=== PATIENT | female | born 1985 | race Caucasian/White ===

== ENCOUNTER 2017-05-18 00:37 | Emergency (ER) | payer MEDICAID ==
[2016-06-03 12:56] VITALS: BMI 32.2
[~2017-05-18 00:37] MED LIST: IBUPROFEN600 MG PO; MOTRIN800 MG PO; PERCOCET 10/3251 TA1 PO; PERCOCET 5-3251 TAB PO; PRENATAL COMPLE1 TAB PO; TYLENOL W/CODEI1 TAB PO
== END 2017-05-18 01:30 | disposition home or self-care (01) ==
LOC: D.ER 00:37
DX: S60.212A Contusion of left wrist, initial encounter (principal); X58.XXXA Exposure to other specified factors, initial encounter; Y93.89 Activity, other specified; Y92.029 Unspecified place in mobile home as the place of occurrence of the external cause

== ENCOUNTER 2017-06-15 13:07 | Emergency (ER) | payer MEDICAID ==
[2016-06-03 12:56] VITALS: BMI 32.2
== END 2017-06-15 16:05 | disposition home or self-care (01) ==
LOC: D.ER 13:07
DX: L50.9 Urticaria, unspecified (principal); T37.0X5A Adverse effect of sulfonamides, initial encounter; Y92.029 Unspecified place in mobile home as the place of occurrence of the external cause

== ENCOUNTER 2018-06-08 23:35 | Emergency (ER) | payer MEDICAID ==
[~2018-06-08] VITALS: Ht 170.2 cm; Wt 65.9 kg
[2018-06-08 23:43] VITALS: Ht 170.2 cm; Wt 65.9 kg
[2018-06-09 00:02] VITALS: BP 117/72
== END 2018-06-09 00:03 | disposition home or self-care (01) ==
LOC: D.ER 23:35
DX: T16.1XXA Foreign body in right ear, initial encounter (principal); X58.XXXA Exposure to other specified factors, initial encounter; Y93.89 Activity, other specified; Y92.019 Unspecified place in single-family (private) house as the place of occurrence of the external cause; F17.200 Nicotine dependence, unspecified, uncomplicated

== ENCOUNTER 2018-07-24 17:59 | Emergency (ER) | payer MEDICAID ==
[~2018-07-24] VITALS: Ht 170.2 cm; Wt 63.6 kg
[2018-07-24 18:05] VITALS: Ht 170.2 cm; Wt 63.6 kg
[2018-07-24 18:51] LABS: BASOPHILS 0.4 % (0-2); EOSINOPHILS 3.9 % (0-7); HEMATOCRIT 47.2 % (36.0-48.0); HEMOGLOBIN 15.8 g/dL (12-16); IMMATURE GRANULOCYTES 0.2 % (0-5); LYMPHOCYTES 20.1 % (15-50); MCH 30.2 pg (26.0-34.0); MCHC 33.5 g/dL (31.0-37.0); MCV 90.2 fL (80.0-100.0); MEAN PLATELET VOLUME 9.8 fL (7.4-10.4); MONOCYTES 10.1 % (2-11); NEUTROPHILS 65.3 % (40-80); RBC 5.23 10x6/uL (4.00-5.40); RDW 12.8 % (11.5-14.5); WBC 4.8 10x3/uL (4.8-10.8)
[2018-07-24 18:54] LABS: PLATELET COUNT 250 10x3/uL (130-400)
[2018-07-24 19:03] LABS: ALBUMIN 3.8 g/dL (3.4-5.0); ALKALINE PHOSPHATASE 58 U/L (46-116); ALT (SGPT) 19 U/L (10-68); BILIRUBIN - TOTAL 0.39 mg/dL (0.2-1.3); CALC OSMOLALITY 274 mosm/kg (275-300); CALCIUM 9.2 mg/dL (8.5-10.1); CARBON DIOXIDE 26.8 mmol/L (21.0-32.0); CHLORIDE - SERUM 100 mmol/L (98-107); CREATININE - SERUM 0.9 mg/dL (0.6-1.3); GLUCOSE 109 mg/dL (74-106); POTASSIUM - SERUM 3.3 mmol/L (3.5-5.1); PROTEIN - SERUM 7.8 g/dL (6.4-8.2); SODIUM 137 mmol/L (136-145); UREA NITROGEN 13 mg/dL (7-18); eGFR NON AFRICAN AMERICAN 78 mL/min (90-120)
[2018-07-24 19:05] LABS: APPEARANCE CLOUDY (CLEAR); BILIRUBIN NEGATIVE (NEGATIVE); COLOR YELLOW (YELLOW); GLUCOSE NEGATIVE (NEGATIVE); KETONE NEGATIVE (NEGATIVE); NITRITE NEGATIVE (NEGATIVE); PROTEIN 2+ mg/dL (NEGATIVE); SPECIFIC GRAVITY 1.025 (1.005-1.020); UROBILINOGEN NORMAL (NORMAL)
[2018-07-24 19:06] LABS: BACTERIA FEW /hpf (NONE SEEN); EPITHELIAL CELLS 25-50 /hpf (0-5); RED CELLS - URINE NONE SEEN /hpf (0-5); WHITE CELLS - URINE >50 /hpf (0-5)
[2018-07-24] MEDS ORDERED: DIFLUCAN150 MG PO (21:50)
[2018-07-24] MEDS ORDERED: CIPRO250 MG PO (21:50)
[2018-07-24 22:45] VITALS: BP 118/77
== END 2018-07-24 22:45 | disposition home or self-care (01) ==
LOC: D.ER 17:59
PROVIDERS: Family Medicine
DX: N39.0 Urinary tract infection, site not specified (principal); M54.5 Low back pain; R42 Dizziness and giddiness; F17.200 Nicotine dependence, unspecified, uncomplicated

== ENCOUNTER 2019-03-08 13:17 | Emergency (ER) | payer MEDICAID ==
[~2019-03-08] VITALS: Ht 170.2 cm; Wt 68.2 kg
[~2019-03-08 13:17] MED LIST changes: +CIPRO250 MG PO; +DIFLUCAN150 MG PO
[2019-03-08 13:26] VITALS: Ht 170.2 cm; Wt 68.2 kg
--- NOTE | 2019-03-08 14:47 | NUR ---
PT WAS AGGRESSIVE WITH ER STAFF AND INITIAL REFUSED LABS AND CARE. PT ATTEMPTED TO HANG SELF TODAY AND ALSO CUT HER WRIST. PT STATED TO STAFF THAT IF SHE WAS RELEASED "SHE WOULD DO IT AGAIN AND DO IT RIGHT". PT ADMITTED TO DOING [facility]ETH YESTERDAY. PT IS HEARING VOICES. PT IS PARANOID AND DELUSIONAL. PT THINKS SHE CAN HEAR STAFF'S THOUGHTS. DR. CANTU NOTIFIED AND SUICIDE WATCH IS ORDERED. SITTER FROM ED AT BEDSIDE WHEN I ARRIVED. ALL BELONGINGS AT NURSES DESK AND PT IN PAPER SCRUBS. ATTENDING AND CHARGE NURSE NOTIFIED OF RESULTS. PT REFUSES TO DO SAFETY PLAN AT THIS TIME.
[2019-03-08 14:58] LABS: BASOPHILS 0.2 % (0-2); EOSINOPHILS 0.6 % (0-7); HEMATOCRIT 39.5 % (36.0-48.0); HEMOGLOBIN 13.4 g/dL (12-16); IMMATURE GRANULOCYTES 0.2 % (0-5); LYMPHOCYTES 15.4 % (15-50); MCH 29.4 pg (26.0-34.0); MCHC 33.9 g/dL (31.0-37.0); MCV 86.6 fL (80.0-100.0); MEAN PLATELET VOLUME 9.2 fL (7.4-10.4); MONOCYTES 6.2 % (2-11); NEUTROPHILS 77.4 % (40-80); PLATELET COUNT 295 10x3/uL (130-400); RBC 4.56 10x6/uL (4.00-5.40); RDW 13.5 % (11.5-14.5); WBC 13.5 10x3/uL (4.8-10.8)
[2019-03-08 15:14] LABS: ALBUMIN 3.1 g/dL (3.4-5.0); ALKALINE PHOSPHATASE 54 U/L (46-116); ALT (SGPT) 16 U/L (10-68); CALC OSMOLALITY 279 mosm/kg (275-300); CALCIUM 9.2 mg/dL (8.5-10.1); CARBON DIOXIDE 25.5 mmol/L (21.0-32.0); CHLORIDE - SERUM 104 mmol/L (98-107); CREATININE - SERUM 0.9 mg/dL (0.6-1.3); GLUCOSE 94 mg/dL (74-106); POTASSIUM - SERUM 3.4 mmol/L (3.5-5.1); PROTEIN - SERUM 6.5 g/dL (6.4-8.2); SODIUM 140 mmol/L (136-145); UREA NITROGEN 15 mg/dL (7-18); eGFR NON AFRICAN AMERICAN 77 mL/min (90-120)
[2019-03-08 15:15] LABS: UDS - AMPHET POSITIVE QUAL (NEGATIVE); UDS - BARB NEGATIVE QUAL (NEGATIVE); UDS - BENZO NEGATIVE QUAL (NEGATIVE); UDS - COCAINE NEGATIVE QUAL (NEGATIVE); UDS - OPIATE NEGATIVE QUAL (NEGATIVE); UDS - PCP NEGATIVE QUAL (NEGATIVE); UDS - THC NEGATIVE QUAL (NEGATIVE)
[2019-03-08 15:20] LABS: APPEARANCE HAZY (CLEAR); COLOR YELLOW (YELLOW)
[2019-03-08 15:25] LABS: GLUCOSE NEGATIVE (NEGATIVE); KETONE MODERATE mg/dL (NEGATIVE); NITRITE NEGATIVE (NEGATIVE); PROTEIN TRACE mg/dL (NEGATIVE); UROBILINOGEN NORMAL (NORMAL)
[2019-03-08 15:26] LABS: BILIRUBIN NEGATIVE (NEGATIVE)
[2019-03-08 15:29] LABS: BACTERIA MANY /hpf (NONE SEEN); MUCUS <1+ /lpf (NONE SEEN); RED CELLS - URINE OCC /hpf (0-5); WHITE CELLS - URINE 25-50 /hpf (0-5)
[2019-03-08] MEDS ORDERED: MACROBID100 MG PO (18:59)
[2019-03-08 23:38] VITALS: BP 105/55
== END 2019-03-08 23:40 ==
LOC: D.ER 13:17
PROVIDERS: Family Medicine
DX: R45.851 Suicidal ideations (principal); F19.10 Other psychoactive substance abuse, uncomplicated; N39.0 Urinary tract infection, site not specified

== ENCOUNTER 2020-03-02 02:01 | Emergency (ER) | payer MEDICAID ==
[~2020-03-02] VITALS: Ht 170.2 cm; Wt 65.8 kg
[~2020-03-02 02:01] MED LIST changes: +MACROBID100 MG PO
[2020-03-02 02:18] VITALS: Ht 170.2 cm; Wt 65.8 kg
[2020-03-02] MEDS ORDERED: LEXAPRO5 MG (02:20)
[2020-03-02] MEDS ORDERED: KLONOPIN0.5 MG (02:20)
[2020-03-02] MEDS ORDERED: LEXAPRO10 MG PO ×2 (02:32→02:35)
[2020-03-02] MEDS ORDERED: KLONOPIN0.5 MG PO (02:32)
[2020-03-02] MEDS ORDERED: KLONOPIN1 MG PO ×2 (02:35→03:46)
[2020-03-02 02:48] LABS: CALC OSMOLALITY 276 mosm/kg (275-300); CALCIUM 8.7 mg/dL (8.5-10.1); CARBON DIOXIDE 24.4 mmol/L (21.0-32.0); CHLORIDE - SERUM 105 mmol/L (98-107); CREATININE - SERUM 0.9 mg/dL (0.6-1.3); GLUCOSE 107 mg/dL (74-106); POTASSIUM - SERUM 3.4 mmol/L (3.5-5.1); SODIUM 139 mmol/L (136-145); UREA NITROGEN 10 mg/dL (7-18); eGFR NON AFRICAN AMERICAN 77 mL/min (90-120)
[2020-03-02 02:55] LABS: ALBUMIN 3.9 g/dL (3.4-5.0); ALKALINE PHOSPHATASE 50 U/L (30-120); ALT (SGPT) 18 U/L (10-68); BILIRUBIN - TOTAL 0.41 mg/dL (0.2-1.3)
[2020-03-02 03:01] LABS: HCG URINE NEGATIVE (NEGATIVE)
[2020-03-02 03:04] LABS: UDS - AMPHET POSITIVE QUAL (NEGATIVE); UDS - BARB NEGATIVE QUAL (NEGATIVE); UDS - BENZO POSITIVE QUAL (NEGATIVE); UDS - COCAINE NEGATIVE QUAL (NEGATIVE); UDS - OPIATE POSITIVE QUAL (NEGATIVE); UDS - PCP NEGATIVE QUAL (NEGATIVE); UDS - THC NEGATIVE QUAL (NEGATIVE)
[2020-03-02 03:19] LABS: BACTERIA FEW /hpf (NEGATIVE); EPITHELIAL CELLS 0-5 /hpf (0-5); RED CELLS - URINE 0-5 /hpf (0-5); WHITE CELLS - URINE 0-5 /hpf (NEGATIVE)
[2020-03-02] MEDS ORDERED: DOXYCYCLINE HY100 M2 PO (03:46)
[2020-03-02 04:34] VITALS: BP 122/72
== END 2020-03-02 04:36 | disposition home or self-care (01) ==
LOC: D.ER 02:01
PROVIDERS: Emergency Medicine
DX: F31.9 Bipolar disorder, unspecified (principal); J01.90 Acute sinusitis, unspecified; B96.89 Other specified bacterial agents as the cause of diseases classified elsewhere; F15.10 Other stimulant abuse, uncomplicated; R30.9 Painful micturition, unspecified; Z72.0 Tobacco use

== ENCOUNTER 2020-04-03 09:10 | Emergency (ER) | payer MEDICAID ==
[~2020-04-03] VITALS: Ht 170.2 cm; Wt 63.6 kg
[~2020-04-03 09:10] MED LIST changes: +DOXYCYCLINE HY100 M2 PO; +KLONOPIN0.5 MG; +KLONOPIN0.5 MG PO; +KLONOPIN1 MG PO; +LEXAPRO10 MG PO; +LEXAPRO5 MG
[2020-04-03 09:15] VITALS: BP 119/81; Ht 170.2 cm; Wt 63.6 kg
[2020-04-03] MEDS ORDERED: SEROQUEL200 MG PO (09:16)
[2020-04-03] MEDS ORDERED: TOPAMAX50 MG PO (09:16)
[2020-04-03 09:38] LABS: BASOPHILS 0.2 % (0-2); EOSINOPHILS 8.8 % (0-7); HEMATOCRIT 40.9 % (36.0-48.0); HEMOGLOBIN 13.4 g/dL (12-16); IMMATURE GRANULOCYTES 0.1 % (0-5); LYMPHOCYTES 20.2 % (15-50); MCH 28.2 pg (26.0-34.0); MCHC 32.8 g/dL (31.0-37.0); MCV 86.1 fL (80.0-100.0); MEAN PLATELET VOLUME 9.6 fL (7.4-10.4); MONOCYTES 6.9 % (2-11); NEUTROPHILS 63.8 % (40-80); PLATELET COUNT 295 10x3/uL (130-400); RBC 4.75 10x6/uL (4.00-5.40); RDW 13.7 % (11.5-14.5); WBC 8.8 10x3/uL (4.8-10.8)
[2020-04-03 09:56] LABS: ALBUMIN 3.6 g/dL (3.4-5.0); ANION GAP 10.8 mmol/L (8-16); BILIRUBIN - TOTAL 0.46 mg/dL (0.2-1.3); CALCIUM 8.8 mg/dL (8.5-10.1); PROTEIN - SERUM 6.7 g/dL (6.4-8.2)
[2020-04-03 09:57] LABS: UDS - AMPHET POSITIVE QUAL (NEGATIVE); UDS - BARB NEGATIVE QUAL (NEGATIVE); UDS - BENZO POSITIVE QUAL (NEGATIVE); UDS - COCAINE NEGATIVE QUAL (NEGATIVE); UDS - OPIATE NEGATIVE QUAL (NEGATIVE); UDS - PCP NEGATIVE QUAL (NEGATIVE); UDS - THC POSITIVE QUAL (NEGATIVE)
[2020-04-03 09:59] LABS: POTASSIUM - SERUM 2.8 mmol/L (3.5-5.1)
[2020-04-03 10:16] LABS: HCG URINE NEGATIVE (NEGATIVE)
[2020-04-03 10:21] LABS: BILIRUBIN NEGATIVE (NEGATIVE); KETONE NEGATIVE (NEGATIVE); NITRITE NEGATIVE (NEGATIVE); UROBILINOGEN NORMAL mg/dL (< 2)
[2020-04-03 10:22] LABS: BACTERIA MODERATE /HPF (NONE SEEN)
--- NOTE | 2020-04-03 11:46 | NUR ---
DR CANTU NOTIFIED AND REVIEWED PT'S BEHAVIOR AND ASSESSMENT. PT IS HIGH RISK. CURRENTLY SUICIDAL WITH A PLAN TO OVERDOSE ON SEROQUEL. PATIENT REFUSES TO COMPLETE SAFETY PLAN BECAUSE SHE STATES THE SUICIDE QUESTIONS ARE DEPRESSING AND MAKES HER WANT TO KILL HERSELF MORE. PATIENT REFUSED SUICIDE RESOURCE SHEET. LAVELLE ORDERED AND AT BEDSIDE.
== END 2020-04-03 20:42 ==
LOC: D.ER 09:10
PROVIDERS: Family Medicine
DX: R45.851 Suicidal ideations (principal); F15.10 Other stimulant abuse, uncomplicated; E87.6 Hypokalemia; N39.0 Urinary tract infection, site not specified; F32.9 Major depressive disorder, single episode, unspecified

== ENCOUNTER 2020-09-23 03:59 | Emergency (ER) | payer MEDICAID ==
[~2020-09-23] VITALS: Ht 170.2 cm; Wt 52.2 kg
[~2020-09-23 03:59] MED LIST changes: +SEROQUEL200 MG PO; +TOPAMAX50 MG PO
[2020-09-23 04:05] VITALS: Ht 170.2 cm; Wt 52.2 kg
--- NOTE | 2020-09-23 04:38 | NUR ---
PATIENT IN ER 6, HERE FOR MEDICAL REASONS, SHE RECENTLY LOST TASTE AND SMELL. SHE WAS FEELING DEPRESSED A COUPLE OF WEEKS AGO BECAUSE SHE THINKS THAT SHE MISCARRIED BUT SHE ISN'T SURE BECAUSE SHE DID NOT TAKE A TEST BUT SHE DENIES BEING SUICIDIAL AT THIS TIME AND REALLY DIDN'T WANT TO ANSWER THE QUESTIONS BECAUSE SHE SAID THIS IS NOT THE POINT TO WHY SHE IS HERE. 1800 NUMBER GIVEN FOR FUTURE REFERENCE
[2020-09-23 04:43] LABS: BASOPHILS 0.2 % (0-2); EOSINOPHILS 4.9 % (0-7); HEMATOCRIT 40.3 % (36.0-48.0); HEMOGLOBIN 13.2 g/dL (12-16); IMMATURE GRANULOCYTES 0.1 % (0-5); LYMPHOCYTE ABS# 2.06 10x3/uL (1.18-3.74); LYMPHOCYTES 22.2 % (15-50); MCH 28.6 pg (26.0-34.0); MCHC 32.8 g/dL (31.0-37.0); MCV 87.2 fL (80.0-100.0); MEAN PLATELET VOLUME 8.9 fL (7.4-10.4); MONOCYTES 8.4 % (2-11); NEUTROPHIL ABS# 5.97 10x3/uL (1.56-6.13); NEUTROPHILS 64.2 % (40-80); PLATELET COUNT 349 10x3/uL (130-400); RBC 4.62 10x6/uL (4.00-5.40); RDW 13.4 % (11.5-14.5); WBC 9.3 10x3/uL (4.8-10.8)
[2020-09-23 04:55] LABS: HCG SERUM NEGATIVE (NEGATIVE)
[2020-09-23 04:56] LABS: SARS-CoV-2 ANTIGEN NEGATIVE- SARS-COV-2 (NEGATIVE)
[2020-09-23 04:57] LABS: CALC OSMOLALITY 266 mosm/kg (275-300); CALCIUM 9.3 mg/dL (8.5-10.1); CARBON DIOXIDE 29.2 mmol/L (21.0-32.0); CHLORIDE - SERUM 100 mmol/L (98-107); CREATININE - SERUM 0.9 mg/dL (0.6-1.3); GLUCOSE 95 mg/dL (74-106); POTASSIUM - SERUM 3.6 mmol/L (3.5-5.1); SODIUM 134 mmol/L (136-145); UREA NITROGEN 10 mg/dL (7-18); eGFR NON AFRICAN AMERICAN 76 mL/min (90-120)
[2020-09-23 05:10] LABS: BILIRUBIN NEGATIVE (NEGATIVE); KETONE NEGATIVE (NEGATIVE); NITRITE NEGATIVE (NEGATIVE); UROBILINOGEN NORMAL mg/dL (< 2)
[2020-09-23 05:12] LABS: ALBUMIN 3.1 g/dL (3.4-5.0); ALKALINE PHOSPHATASE 62 U/L (30-120); ALT (SGPT) 32 U/L (10-68); BILIRUBIN - TOTAL 0.25 mg/dL (0.2-1.3); CKMB 5.4 U/L (0.0-3.6); CREATINE KINASE 193 UL (21-215); MAGNESIUM - SERUM 2.1 mg/dL (1.8-2.4); PROTEIN - SERUM 6.3 g/dL (6.4-8.2); TROPONIN-I < 0.017 ng/mL (0.000-0.060)
[2020-09-23 05:38] LABS: INR 1.04 (0.85-1.17); PROTIME 12.5 SECONDS (11.6-15.0)
[2020-09-23 05:39] LABS: APTT 30.5 SECONDS (22.8-39.4)
[2020-09-23 05:40] LABS: D-DIMER-QUANTITATIVE < 0.27 ug/mLFEU (0.20-0.54)
[2020-09-23] MEDS ORDERED: PROTONIX40 MG PO (06:52)
[2020-09-23 07:01] LABS: UDS - AMPHET POSITIVE QUAL (NEGATIVE); UDS - BARB NEGATIVE QUAL (NEGATIVE); UDS - BENZO POSITIVE QUAL (NEGATIVE); UDS - COCAINE NEGATIVE QUAL (NEGATIVE); UDS - OPIATE NEGATIVE QUAL (NEGATIVE); UDS - PCP NEGATIVE QUAL (NEGATIVE); UDS - THC NEGATIVE QUAL (NEGATIVE)
[2020-09-23 10:26] VITALS: BP 138/86
== END 2020-09-23 11:00 ==
LOC: D.ER 03:59
PROVIDERS: Family Medicine
DX: R07.9 Chest pain, unspecified (principal); R45.851 Suicidal ideations; F19.10 Other psychoactive substance abuse, uncomplicated; K29.70 Gastritis, unspecified, without bleeding